=== PATIENT | female | born 1990 | race Caucasian/White ===

== ENCOUNTER 2019-03-28 19:21 | Emergency (ER) | payer BC, MEDICAID ==
[~2019-03-28] VITALS: Ht 165.1 cm; Wt 48.0 kg
[~2019-03-28 19:21] MED LIST: CYCL-394 PO
[2019-03-28 19:36] VITALS: BP 123/83
[2019-03-28] MEDS ORDERED: LIDOcaine 5% patch TP STA (20:45)
[2019-03-28] MEDS ORDERED: triamcinolone acetonide 40mg/ml inj IM ONE (20:45)
[2019-03-28] MEDS ORDERED: CYCL-1 PO (20:47)
[2019-03-28] MEDS ORDERED: PRED20TA PO (20:47)
== END 2019-03-28 21:11 | disposition home or self-care (01) ==
LOC: ER 19:21
DX: S39.012A Strain of muscle, fascia and tendon of lower back, initial encounter (principal); R32 Unspecified urinary incontinence; M54.41 Lumbago with sciatica, right side; Z79.899 Other long term (current) drug therapy; Z88.6 Allergy status to analgesic agent; X50.0XXA Overexertion from strenuous movement or load, initial encounter; Y93.89 Activity, other specified; Y92.89 Other specified places as the place of occurrence of the external cause; Y99.8 Other external cause status
CPT/HCPCS: 96372; 99283; J3301

== ENCOUNTER 2019-05-07 13:07 | Emergency (ER) | payer BC ==
[~2019-05-07] VITALS: Ht 165.1 cm; Wt 49.1 kg
[~2019-05-07 13:07] MED LIST changes: +CYCL-1 PO
[2019-05-07 13:16] VITALS: BP 111/57
[2019-05-07] MEDS ORDERED: dexamethasone 4mg/ml inj IM ONE (14:30)
[2019-05-07] MEDS ORDERED: ibuprofen tablet 400 MG TABLET PO ONE (15:45)
[2019-05-07] MEDS ORDERED: acetaminophen 325mg tablet PO ONE (15:45)
[2019-05-07 16:18] LABS: URINE HCG NEGATIVE (NEG)
[2019-05-07 16:19] LABS: CLARITY,URINE CLEAR (Clear); COLOR,URINE STRAW (Yellow); GLUCOSE, URINE NEGATIVE (Neg); KETONES,URINE NEGATIVE (Neg); LEUKOCYTE ESTERASE ,URINE NEGATIVE (Neg); NITRITES, URINE NEGATIVE (Neg); OCCULT BLOOD,URINE NEGATIVE (Neg); PROTEIN,URINE NEGATIVE (Neg); UA COLLECTION TYPE CLN CATCH MIDSTREAM; UROBILINOGEN,URINE 0.2 E.U/dL (0.2-1.0)
== END 2019-05-07 16:04 | disposition home or self-care (01) ==
LOC: ER 13:07
DX: S39.012A Strain of muscle, fascia and tendon of lower back, initial encounter (principal); R32 Unspecified urinary incontinence; Z88.5 Allergy status to narcotic agent; Z79.899 Other long term (current) drug therapy; X50.0XXA Overexertion from strenuous movement or load, initial encounter; Y93.89 Activity, other specified; Y92.89 Other specified places as the place of occurrence of the external cause; Y99.0 Civilian activity done for income or pay
CPT/HCPCS: 72148; 81003; 81025; 96372; 99284; J1100

== ENCOUNTER 2020-04-16 11:08 | Emergency (ER) | payer BC, OTHER ==
[~2020-04-16] VITALS: Ht 165.1 cm; Wt 50.9 kg
[2020-04-16] MEDS ORDERED: LIDOcaine 1% W/epiNEPHrine 1:200,000 10ml vial IJ ONE (11:20)
[2020-04-16] MEDS ORDERED: TETanus/Pertussis (Acell)/Diphther VAC/PF (Tdap-Adult) 0.5ml syringe IMVAC ONE (11:20)
[2020-04-16 12:03] VITALS: BP 146/88
--- NOTE | 2020-04-16 12:22 | NUR ---
PATIENT IS FEELING STRESSED OUT, STATES HER "GF OF 10 YEARS RECENTLY LEFT, HAS CHRONIC PAIN IN SHOULDERS, IS CONCERNED ABOUT FINANCES". "I HAVE A LOT GOING ON"
[2020-04-16] MEDS ORDERED: CEPH250T PO (14:11)
[2020-04-16] MEDS ORDERED: cephalexin 250mg capsule PO ONE (14:15)
== END 2020-04-16 14:26 | disposition home or self-care (01) ==
LOC: ER 11:08
DX: S92.321A Displaced fracture of second metatarsal bone, right foot, initial encounter for closed fracture (principal); R45.851 Suicidal ideations; F32.9 Major depressive disorder, single episode, unspecified; F17.210 Nicotine dependence, cigarettes, uncomplicated; Z88.5 Allergy status to narcotic agent; Z79.2 Long term (current) use of antibiotics; Z79.899 Other long term (current) drug therapy; X58.XXXA Exposure to other specified factors, initial encounter; Y93.89 Activity, other specified; Y92.89 Other specified places as the place of occurrence of the external cause; Y99.8 Other external cause status
CPT/HCPCS: 12002; 12042; 73650; 90471; 90715; 99284

== ENCOUNTER 2020-05-22 18:19 | Inpatient (IN) | payer BC ==
[~2020-05-22] VITALS: Ht 165.1 cm; Wt 50.8 kg
[2020-05-22 19:14] LABS: BASOPHILS % (AUTO) 0.3 % (0-1); EOSINOPHILS % (AUTO) 0.3 % (0-6); HEMOGLOBIN 8.6 g/dl (12.0-16.0); LYMPHOCYTES % (AUTO) 18.4 % (21-51); MEAN CORPUSCULAR VOLUME 84.8 FL (78-98); MEAN PLATELET VOLUME 7.5 FL (7.4-10.4); MONOCYTES # (AUTO) 0.9 X10'3 (0-0.9); MONOCYTES % (AUTO) 8.1 % (2-12); NEUTROPHILS # (AUTO) 7.8 X10'3 (1.8-7.7); NEUTROPHILS % (AUTO) 72.9 % (42-75); PLATELET COUNT 335 X10'3 (140-440); RED BLOOD COUNT 3.06 X10'6 (4.20-5.60); RED CELL DISTRIBUTION WIDTH 13.8 % (11.5-14.5); WHITE BLOOD COUNT 10.7 X10'3 (4.5-11.0)
[2020-05-22 19:23] LABS: ALANINE AMINOTRANSFERASE 36 U/L (12-78); ALBUMIN 3.4 G/DL (3.4-5.0); ALBUMIN/GLOBULIN RATIO 1.2 (1.1-1.5); ALKALINE PHOSPHATASE 42 IU/L (46-116); ANION GAP 9 (8-16); ASPARTATE AMINO TRANSFERASE 27 U/L (10-37); BILIRUBIN,TOTAL 0.3 MG/DL (0.1-1.0); BLOOD UREA NITROGEN 39 MG/DL (7-18); BUN/CREATININE RATIO 51.3 (6.6-38.0); CHLORIDE 109 MMOL/L (99-107); CREATININE 0.76 MG/DL (0.40-0.90); GLUCOSE 89 MG/DL (70-104); LIPASE 126 U/L (73-393); POTASSIUM 3.9 MMOL/L (3.5-5.1); SODIUM 145 MMOL/L (135-145); TOTAL CARBON DIOXIDE 26.7 MMOL/L (24-32); TOTAL PROTEIN 6.2 G/DL (6.4-8.2); eGFR > 90 ML/MIN
[2020-05-22 19:27] LABS: CALCIUM 8.4 MG/DL (8.5-10.1)
[2020-05-22 19:38] LABS: CLARITY,URINE CLEAR (Clear); COLOR,URINE YELLOW (Yellow); GLUCOSE, URINE NEGATIVE (Neg); KETONES,URINE TRACE mg/dl (Neg); LEUKOCYTE ESTERASE ,URINE NEGATIVE (Neg); NITRITES, URINE NEGATIVE (Neg); OCCULT BLOOD,URINE NEGATIVE (Neg); PROTEIN,URINE NEGATIVE (Neg); UROBILINOGEN,URINE 0.2 E.U/dL (0.2-1.0)
[2020-05-22 19:39] LABS: URINE HCG NEGATIVE (NEG)
[2020-05-22 20:09] LABS: UA COLLECTION TYPE CLN CATCH MIDSTREAM
[2020-05-22] MEDS ORDERED: pantoprazole 40 MG vial IV ONE (21:30)
[2020-05-22] MEDS ORDERED: magnesium hydroxide 30ml (MOM) UD suspension PO PRN (22:40)
[2020-05-22] MEDS ORDERED: morphine 2 MG/ML inj. syringe IV PRN (22:40)
[2020-05-22] MEDS ORDERED: acetaminophen 325mg tablet PO PRN (22:40)
[2020-05-22] MEDS ORDERED: ondansetron/PF 4mg/2ml inj IV PRN (22:40)
[2020-05-22] MEDS ORDERED: DULO-31 PO (22:57)
[2020-05-22] MEDS ORDERED: cyclobenzaprine 10mg tablet PO PRN (23:10)
[2020-05-22] MEDS: normal saline 1000ml 1,000 ML IV SCH (23:12)
[2020-05-22 23:33] LABS: HEMOGLOBIN 8.2 g/dl (12.0-16.0); MEAN CORPUSCULAR HEMOGLOBIN 28.9 PG (27.0-31.0); MEAN CORPUSCULAR VOLUME 84.9 FL (78-98); MEAN PLATELET VOLUME 7.5 FL (7.4-10.4); PLATELET COUNT 328 X10'3 (140-440); RED BLOOD COUNT 2.82 X10'6 (4.20-5.60); RED CELL DISTRIBUTION WIDTH 13.8 % (11.5-14.5); WHITE BLOOD COUNT 9.6 X10'3 (4.5-11.0)
[2020-05-23] VITALS (10 sets, daily range): BP systolic 92–108; BP diastolic 46–63
[2020-05-23] MEDS ORDERED: thiamine inj. 100 MG in normal saline 100ml IV soln 100 ML IV ONE (01:10)
[2020-05-23] MEDS ORDERED: haloperidol lactate 5mg/ml inj IM PRN (01:10)
[2020-05-23] MEDS ORDERED: haloperidol 5mg tablet PO PRN (01:10)
[2020-05-23] MEDS ORDERED: LORazepam 2 mg/ml vial IV PRN (01:10)
[2020-05-23] MEDS: pantoprazole 40MG/NS 100ML BAG 100 ML IV SCH ×3 (01:12→11:00)
[2020-05-23] MEDS: morphine 2 MG/ML inj. syringe IV PRN ×2 (01:26→05:45)
--- NOTE | 2020-05-23 02:50 | NUR ---
Patient arrived to the floor at 0250 from the ER. Kelly HARLEY (break nurse) got report for me while I was on lunch. She then gave me report when I came back.
[2020-05-23] MEDS ORDERED: glucagon, human recombinant 1mg kit SUBCUT PRN (03:55)
[2020-05-23] MEDS ORDERED: dextrose 50%-water 50ml dispensing syringe IV PRN ×2 (03:55)
[2020-05-23] MEDS ORDERED: dextrose ORAL solution 15 GM/59 ML bottle PO PRN (03:55)
[2020-05-23] MEDS: dextrose ORAL solution 15 GM/59 ML bottle PO PRN ×2 (04:02→12:42)
[2020-05-23 06:16] LABS: MEAN CORPUSCULAR HEMOGLOBIN 28.3 PG (27.0-31.0); MEAN CORPUSCULAR HGB CONC 33.3 g/dL (33.0-36.5); MEAN CORPUSCULAR VOLUME 85.1 FL (78-98); MEAN PLATELET VOLUME 7.4 FL (7.4-10.4); PLATELET COUNT 285 X10'3 (140-440); RED BLOOD COUNT 2.47 X10'6 (4.20-5.60); RED CELL DISTRIBUTION WIDTH 13.7 % (11.5-14.5); WHITE BLOOD COUNT 9.5 X10'3 (4.5-11.0)
--- NOTE | 2020-05-23 06:31 | NUR ---
PAGER ID: [phone] MESSAGE: Stella Cancino9Vanessa Tran; [id number] critical lab H/H 7.0/21.0. Please advise. Thank you.
[2020-05-23 06:32] LABS: ALANINE AMINOTRANSFERASE 31 U/L (12-78); ALBUMIN/GLOBULIN RATIO 1.3 (1.1-1.5); ALKALINE PHOSPHATASE 37 IU/L (46-116); ANION GAP 8 (8-16); ASPARTATE AMINO TRANSFERASE 19 U/L (10-37); BILIRUBIN,TOTAL 0.2 MG/DL (0.1-1.0); BLOOD UREA NITROGEN 35 MG/DL (7-18); CHLORIDE 106 MMOL/L (99-107); CREATININE 0.66 MG/DL (0.40-0.90); GLUCOSE 110 MG/DL (70-104); POTASSIUM 3.4 MMOL/L (3.5-5.1); SODIUM 140 MMOL/L (135-145); TOTAL CARBON DIOXIDE 25.8 MMOL/L (24-32); TOTAL PROTEIN 5.4 G/DL (6.4-8.2); eGFR > 90 ML/MIN
--- NOTE | 2020-05-23 06:44 | NUR ---
Problems reprioritized. Patient report given, questions answered & plan of care reviewed with Jayde HARLEY.
--- NOTE | 2020-05-23 06:58 | NUR ---
Patient in room [facility] 4012B. I have received report from CRICKET Douglas and had the opportunity to ask questions and assume patient care.
[2020-05-23] MEDS ORDERED: folic acid 1mg tablet PO SCH (08:00)
[2020-05-23] MEDS ORDERED: nicotine 7mg patch - 24hr TD SCH (08:00)
[2020-05-23] MEDS ORDERED: thiamine 100mg tablet PO SCH (08:00)
[2020-05-23] MEDS ORDERED: multivitamins, therapeutics tablet PO SCH (08:00)
[2020-05-23] MEDS ORDERED: duloxetine 30mg CAPSULE.DR PO SCH (08:00)
[2020-05-23] MEDS: normal saline 1000ml 1,000 ML IV SCH (08:36)
[2020-05-23 09:23] LABS: HEMOGLOBIN 7.1 g/dl (12.0-16.0); MEAN CORPUSCULAR HEMOGLOBIN 28.1 PG (27.0-31.0); MEAN CORPUSCULAR VOLUME 85.2 FL (78-98); MEAN PLATELET VOLUME 7.4 FL (7.4-10.4); PLATELET COUNT 300 X10'3 (140-440); RED BLOOD COUNT 2.52 X10'6 (4.20-5.60); RED CELL DISTRIBUTION WIDTH 13.6 % (11.5-14.5); WHITE BLOOD COUNT 8.4 X10'3 (4.5-11.0)
[2020-05-23 09:25] LABS: HEMATOCRIT 21.4 % (35.0-45.0)
[2020-05-23] MEDS ORDERED: fentaNYL/PF 50MCG/1 ML 2ML syringe ONE (09:26)
[2020-05-23] MEDS ORDERED: LIDOcaine Viscous 15ml cup ONE (09:26)
[2020-05-23] MEDS ORDERED: MIDAZolam 5mg/5ml vial ONE (09:26)
[2020-05-23] MEDS ORDERED: TRAM50TA2 PO (13:03)
[2020-05-23] MEDS ORDERED: PANT-47 PO (13:05)
[2020-05-23 15:12] LABS: HEMATOCRIT 25.4 % (35.0-45.0); HEMOGLOBIN 8.7 g/dl (12.0-16.0); MEAN CORPUSCULAR HEMOGLOBIN 29.5 PG (27.0-31.0); MEAN CORPUSCULAR HGB CONC 34.2 g/dL (33.0-36.5); MEAN CORPUSCULAR VOLUME 86.3 FL (78-98); MEAN PLATELET VOLUME 7.6 FL (7.4-10.4); PLATELET COUNT 259 X10'3 (140-440); RED BLOOD COUNT 2.95 X10'6 (4.20-5.60); RED CELL DISTRIBUTION WIDTH 13.3 % (11.5-14.5); WHITE BLOOD COUNT 6.9 X10'3 (4.5-11.0)
--- NOTE | 2020-05-23 15:53 | NUR ---
Page Sent PAGER ID: [phone] MESSAGE: SANGEETA [id number]:MARTIN CARDONA...PT H/H 8.7 / 25.4...PT TOLERATING CLEAR LIQUIDS AND WALKED 600 FT STABLE AND READY TO GO HOME.
--- NOTE | 2020-05-23 17:00 | NUR ---
DC INSTRUCTIONS GIVEN TO PT, QUESTIONS ANSWERED. IV REMOVED, CANULA INTACT. TELE MONITOR REMOVED. PT DRESSED SELF. WHEELED DOWN TO DAD IN PRIVATE VEHICLE IN STABLE CONDITION.
[2020-05-25] MEDS ORDERED: LORazepam 2 mg/ml vial IV PRN (01:10)
[2020-05-25] MEDS ORDERED: LORazepam 1 MG tablet PO PRN (01:10)
[2020-05-27] MEDS ORDERED: LORazepam 1 MG tablet PO PRN (01:10)
[2020-05-27] MEDS ORDERED: LORazepam 2 mg/ml vial IV PRN (01:10)
== END 2020-05-23 17:20 | disposition home or self-care (01) | DRG 379 ==
LOC: ER 18:20 → ED HOLD 22:36 → ORTHO 4S 05-23 02:40
PROVIDERS: ADMIT Family Medicine; ATTEND Family Medicine
PROC: 0DB68ZX Excision of Stomach, Via Natural or Artificial Opening Endoscopic, Diagnostic (ICD-10-PCS; principal; 2020-05-23)
PROC: 30233N1 Transfusion of Nonautologous Red Blood Cells into Peripheral Vein, Percutaneous Approach (ICD-10-PCS; 2020-05-23)
DX: K25.4 Chronic or unspecified gastric ulcer with hemorrhage (principal); K26.0 Acute duodenal ulcer with hemorrhage; D50.0 Iron deficiency anemia secondary to blood loss (chronic); E87.6 Hypokalemia; K29.70 Gastritis, unspecified, without bleeding; T39.395A Adverse effect of other nonsteroidal anti-inflammatory drugs [NSAID], initial encounter; F17.210 Nicotine dependence, cigarettes, uncomplicated; F32.9 Major depressive disorder, single episode, unspecified; F10.10 Alcohol abuse, uncomplicated; G89.29 Other chronic pain; K30 Functional dyspepsia; M54.9 Dorsalgia, unspecified; R00.0 Tachycardia, unspecified; Y92.89 Other specified places as the place of occurrence of the external cause; Z88.5 Allergy status to narcotic agent; Z79.899 Other long term (current) drug therapy; Z71.6 Tobacco abuse counseling
CPT/HCPCS: 36415; 36430; 43239; 71045; 80053; 81003; 81025; 82948; 83690; 85025; 85027; 85610; 86885; 86900; 86901; 86920; 87081; 93005; 96374; 99152; 99285; A4620; C9113; G0378; J2250; J2270; J3010; J3411; J7030; J7040; P9016

== ENCOUNTER 2022-11-08 11:17 | Emergency (ER) | payer BC, MEDICAID ==
[~2022-11-08] VITALS: Ht 165.1 cm; Wt 65.0 kg
[~2022-11-08 11:17] MED LIST changes: -CYCL-394 PO; +DULO-31 PO; +PANT-47 PO
[2022-11-08 19:34] LABS: CLARITY,URINE SLIGHTLY CLOUDY (Clear); COLOR,URINE YELLOW (Yellow); GLUCOSE, URINE NEGATIVE (Neg); KETONES,URINE NEGATIVE (Neg); LEUKOCYTE ESTERASE ,URINE NEGATIVE (Neg); NITRITES, URINE NEGATIVE (Neg); OCCULT BLOOD,URINE NEGATIVE (Neg); PROTEIN,URINE NEGATIVE (Neg); UROBILINOGEN,URINE 0.2 E.U/dL (0.2-1.0)
[2022-11-08 19:35] LABS: URINE HCG NEGATIVE (NEG)
[2022-11-08 19:45] LABS: UA COLLECTION TYPE CLN CATCH MIDSTREAM
[2022-11-08 19:46] LABS: BACTERIA,URINE FEW /HPF (Neg); MUCUS STRANDS FEW /LPF (Neg); RBC,URINE 0-2 /HPF (0-2); SQUAMOUS EPITHELIAL CELL,UR MODERATE /LPF (FEW)
[2022-11-08] MEDS ORDERED: PRED10TA PO (21:08)
[2022-11-08 21:33] VITALS: BP 135/78
== END 2022-11-08 21:36 | disposition home or self-care (01) ==
LOC: ER 11:17
DX: R20.0 Anesthesia of skin (principal); M25.531 Pain in right wrist; G62.9 Polyneuropathy, unspecified; G89.29 Other chronic pain; F32.9 Major depressive disorder, single episode, unspecified; Z72.89 Other problems related to lifestyle; Z88.5 Allergy status to narcotic agent; Z79.899 Other long term (current) drug therapy
CPT/HCPCS: 29125; 73110; 81001; 81025; 87088; 99284; 99285

== ENCOUNTER 2024-02-22 00:40 | Emergency (ER) | payer MEDICAID ==
[~2024-02-22] VITALS: Ht 165.1 cm; Wt 70.5 kg
[~2024-02-22 00:40] MED LIST changes: +PRED10TA PO
[2024-02-22] MEDS: ondansetron 4mg rapidly disintigrating tab PO ONE (01:43)
[2024-02-22] MEDS: amox tr/potassium clavulanate 875/125mg TAB PO ONE (01:43)
[2024-02-22] MEDS ORDERED: AMOX-419 PO (02:12)
[2024-02-22 02:33] VITALS: BP 103/66; PULSE 59; RESP 16; TEMP 98.2; O2SAT 99
== END 2024-02-22 02:36 | disposition home or self-care (01) ==
LOC: ER 00:41
DX: S61.551A Open bite of right wrist, initial encounter (principal); L03.113 Cellulitis of right upper limb; Z88.5 Allergy status to narcotic agent; Z79.899 Other long term (current) drug therapy; W55.01XA Bitten by cat, initial encounter; Y93.89 Activity, other specified; Y92.89 Other specified places as the place of occurrence of the external cause; Y99.8 Other external cause status
CPT/HCPCS: 73100; 99283

== ENCOUNTER 2024-04-13 23:34 | Emergency (ER) | payer MEDICAID ==
[~2024-04-13] VITALS: Ht 165.1 cm; Wt 65.9 kg
[2024-04-14 00:08] LABS: BASOPHILS # (AUTO) 0.1 X10'3 (0-0.2); BASOPHILS % (AUTO) 0.5 % (0-1); EOSINOPHILS % (AUTO) 0.2 % (0-6); HEMATOCRIT 43.5 % (35.0-45.0); HEMOGLOBIN 14.4 g/dl (12.0-16.0); LYMPHOCYTES # (AUTO) 2.9 X10'3 (1.1-4.8); LYMPHOCYTES % (AUTO) 16.9 % (21-51); MEAN CORPUSCULAR HEMOGLOBIN 27.1 PG (27.0-31.0); MEAN CORPUSCULAR HGB CONC 33.2 g/dL (33.0-36.5); MEAN CORPUSCULAR VOLUME 81.6 FL (78-98); MEAN PLATELET VOLUME 7.4 FL (7.4-10.4); MONOCYTES # (AUTO) 1.5 X10'3 (0-0.9); MONOCYTES % (AUTO) 8.6 % (2-12); NEUTROPHILS # (AUTO) 12.5 X10'3 (1.8-7.7); NEUTROPHILS % (AUTO) 73.8 % (42-75); PLATELET COUNT 380 X10'3 (140-440); RED BLOOD COUNT 5.33 X10'6 (4.20-5.60); RED CELL DISTRIBUTION WIDTH 13.6 % (11.5-14.5)
[2024-04-14] MEDS: ondansetron/PF 4mg/2ml inj IV ONE (00:13)
[2024-04-14] MEDS: normal saline 1000ml 1,000 ML IV ONE (00:14)
[2024-04-14 00:16] LABS: ALANINE AMINOTRANSFERASE 34 U/L (12-78); ALBUMIN 4.7 G/DL (3.4-5.0); ALBUMIN/GLOBULIN RATIO 1.1 (1.1-1.5); ALKALINE PHOSPHATASE 69 IU/L (46-116); ANION GAP 14 (8-16); ASPARTATE AMINO TRANSFERASE 27 U/L (10-37); BILIRUBIN,TOTAL 0.7 MG/DL (0.1-1.0); BLOOD UREA NITROGEN 15 MG/DL (7-18); BUN/CREATININE RATIO 17.4 (10.0-20.0); CALCIUM 9.6 MG/DL (8.5-10.1); CHLORIDE 95 MMOL/L (99-107); CREATININE 0.86 MG/DL (0.40-0.90); GLUCOSE 120 MG/DL (70-104); LIPASE 36 U/L (16-77); POTASSIUM 3.6 MMOL/L (3.5-5.1); SODIUM 136 MMOL/L (135-145); TOTAL CARBON DIOXIDE 27.1 MMOL/L (24-32); TOTAL PROTEIN 8.8 G/DL (6.4-8.2); eCRCL 85 ML/MIN; eGFR 76 ML/MIN
[2024-04-14 00:32] LABS: HCG SERUM QL NEGATIVE
[2024-04-14] MEDS ORDERED: ONDA-243 PO (02:24)
[2024-04-14 03:02] VITALS: BP 125/84; PULSE 64; RESP 14; TEMP 98.2; O2SAT 96
== END 2024-04-14 03:11 | disposition home or self-care (01) ==
LOC: ER 23:34
DX: R10.84 Generalized abdominal pain (principal); R11.2 Nausea with vomiting, unspecified; F32.A Depression, unspecified; Z88.5 Allergy status to narcotic agent; Z79.899 Other long term (current) drug therapy; Z87.891 Personal history of nicotine dependence
CPT/HCPCS: 36415; 80053; 83690; 84703; 85025; 96361; 96374; 99283; J2405; J7030